=== PATIENT | male | born 1995 | race Caucasian/White ===

== ENCOUNTER 2025-04-09 06:36 | Outpatient (REF) | payer OTHER, SELFPAY ==
--- OUTSIDE RECORDS SUMMARY | 2025-04-09 06:40 | XMS_ITS | Encounter Summary ---
Author Organization [facility] Address [address] [place] [phone] Phone Care Team Providers Care Dip Tanker Name Role Phone Kaden Mohr MD Primary Care Provider Ramila marlow Encounter Details Date Type Department Care Team (Late st Contact Info) Description 04/16/2018 Conversion Encounter [facility] [address] [address] Kaden Mohr MD Social History Tobacco Use Types Packs/Day Years Used Date Smoking Tobacco: Never Assessed Sex and Gender Information Value Date Recorded Sex Assigned at Not on file Legal Sex Male 6:10 PM EDT Gender Identity Not on file Sexual Orientation Not on file documented as of this encounter Plan of Treatment Not on file documented as of this encounter Visit Diagnoses Not on filedocumented in this encounter Care Teams Dip Tanker Relationship Specialty Start Date End Date Kaden Mohr MD PCP - General 04/05/18 documented as of this encounter
--- OUTSIDE RECORDS SUMMARY | 2025-04-09 06:40 | XMS_ITS | Clinical Summary ---
Author Organization [facility] Address [address] [place] [phone] Phone Care Team Providers Care [employer] Iam Consultant Name Role Phone Kaden Mohr MD Primary Care Provider Ramila marlow Immunizations Immunization Administration Dates Next Due DTaP 02/16/2001, 7,1996, 996,1996 Hep B, ped/adol 1996,1996,1996 Hib (PRP-T) 05/06/1997,199 6,1996, 996 IPV 02/16/2001,199 6,1996, 996 MMR 02/16/2001,02/14/1997 Meningococcal Conj (Menactra) MCV4P 01/25/2013,0 03/19/2008 Tdap 03/19/2008 Varicella 03/19/2008,03/18/1999 Family History Relation Name Status Comments Father Alive hypertension Maternal Grandfather cancer hip fx puln embolus, , DM Maternal Grandmother Alive hyperte nsion Mother Alive healthy Paternal Grandfather prostat e had mi, DM Paternal Grandmother Alive Social History Tobacco Use Types Packs/Day Years Used Date Smoking Tobacco: Never Assessed Sex and Gender Information Value Date Recorded Sex Assigned at Not on file Legal Sex Male 6:10 PM EDT Gender Identity Not on file Sexual Orientation Not on file Last Filed Vital Signs Vital Sign Reading Time Taken Comments Blood Pressure 128/72 02/21/2014 12:00 AM EDT Pulse - - Temperature - - Respiratory Rate - - Oxygen Saturation - - Inhaled Oxygen Concentration - - Weight 79.8 kg (176 lb) 02/21/2014 12:00 AM EDT Height 163.8 cm (5' 4.5 ) 02/21/2014 12:00 AM ED T Body Mass Index 29.74 02/21/2014 12:00 AM EDT Plan of Treatment Health Maintenance Due Date Last Done Comments DTaP,Tdap,and Td Vaccines (7 - Td or Tdap) 03/19/2018 03/19/2008, 02/16/2001, 05/06/1997, Additional history exists Influenza Vaccines (#1) 2024 COVID-19 Vaccine ( season) 2024 Hepatitis B Vaccines Completed 1996, 1996, 1996 HIB Vaccines Completed 05/06/1997, 07/29, 1996, Additional history exists IPV Vaccines Completed 02/16/2001, 07/29, 1996, Additional history exists MMR Vaccines Completed 02/16/2001, 02/14/1997 Varicella Vaccines Completed 03/19/2008, 03/18/1999 Meningococcal Vaccine Completed 01/25/2013, 008 HPV Vaccines Aged Out No longer eligi ble based on patient's age to complete this topic Hepatitis A Vaccines Aged Out No long er eligible based on patient's age to complete this topic Men B Vaccine Aged Out No longer elig ible based on patient's age to complete this topic Pneumococcal Vaccine Aged Out No long er eligible based on patient's age to complete this topic Care Teams Oracle Iam Consultant Relationship Specialty Start Date End Date Kaden Mohr MD PCP - General 04/05/18
--- OUTSIDE RECORDS SUMMARY | 2025-04-09 06:40 | XMS_ITS | Encounter Summary ---
Author Organization [facility] Address [address] [place] [phone] Phone Care Team Providers Care Authors Motivational Name Role Phone Kaden Mohr MD Primary Care Provider Ramila marlow Encounter Details Date Type Department Care Team (Late st Contact Info) Description 01/06/2010 Documentation [facility] [place] [facility] [address] [place] [address] Family Medicine, Physician [address] [place] [address] Social History Tobacco Use Types Packs/Day Years [...] on filedocumented in this encounter Care Teams Authors Motivational Relationship Specialty Start Date End Date Kaden Mohr MD PCP - General 04/05/18 documented as of this encounter
== END 2025-04-09 06:37 | disposition home or self-care (01) ==
LOC: HO.UMASIMG 06:36
PROVIDERS: Visit Provider Physician Assistant
DX: Z13.89 Encounter for screening for other disorder (principal)